=== PATIENT | female | born 1990 | race Caucasian/White ===

== ENCOUNTER → 2024-03-22 | Outpatient (CLI) | payer OTHER ==
[2024-03-23 00:23] LABS: Bacterial Vaginosis PCR Negative (NEGATIVE); Candida Group, PCR NOT DETECTED (NOT DETECT); Candida glabrata-krusei, PCR NOT DETECTED (NOT DETECT)
[2024-03-25 15:03] LABS: APTIMA MEDIA TYPE Urine; C. TRACHOMATIS BY TMA Negative (Negative); N. GONORRHOEAE BY TMA Negative (Negative); SPECIMEN SOURCE Urine
== END | disposition home or self-care (01) ==
LOC: LAB SHORT 16:22 → LAB 16:22
PROVIDERS: Advanced Practice Midwife
DX: Z11.3 Encounter for screening for infections with a predominantly sexual mode of transmission (principal); N76.0 Acute vaginitis
CPT/HCPCS: 87481; 87491; 87591; 87661; 87801

== ENCOUNTER 2024-07-31 10:15 | Day surgery (SDC) | payer OTHER ==
[~2024-07-31] VITALS: Ht 170.2 cm; Wt 96.0 kg
[~2024-07-31 10:15] MED LIST: NS 500 ML IV ONE
[2024-07-31] MEDS ORDERED: CeFAZolin Sodium 2,000 MG VIAL ONE (10:21)
[2024-07-31] MEDS ORDERED: IMITREX100 MG (10:45)
[2024-07-31] MEDS ORDERED: ONDA4ODT (10:45)
[2024-07-31] MEDS ORDERED: NS 500 ML IV ONE (10:52)
--- NOTE | 2024-07-31 11:02 | NUR ---
07/31/24 1102 Rosa Rosas 1101: TIMEOUT AND PRE-OP INJECTION OF 5 CC OF MIX OF 9 CC LIDOCAINE 1% WITH EPI 1:100,000 WITH 1 CC SODIUM BICARB
[2024-07-31] MEDS ORDERED: Scopolamine Hydrobromide Patch ONE (11:13)
[2024-07-31] MEDS ORDERED: propofoL 20 ML IV ONE (11:40)
[2024-07-31] MEDS ORDERED: Midazolam HCl 1MG / ML 2ML Vial ONE (11:40)
[2024-07-31] MEDS ORDERED: Dexamethasone Sod Phos 10 MG/ML 1ML VIAL ONE (11:44)
[2024-07-31] MEDS ORDERED: Ondansetron HCl 2 MG / ML 2ML Vial ONE (11:44)
== END 2024-07-31 13:00 | disposition home or self-care (01) ==
LOC: ORSCSDS 10:15
PROVIDERS: Orthopaedic Surgery
PROC: 0JNK0ZZ Release Left Hand Subcutaneous Tissue and Fascia, Open Approach (ICD-10-PCS; principal; 2024-07-31 11:45)
DX: M65.4 Radial styloid tenosynovitis [de Quervain] (principal); M77.8 Other enthesopathies, not elsewhere classified; E66.9 Obesity, unspecified; Z68.33 Body mass index [BMI] 33.0-33.9, adult; Z79.899 Other long term (current) drug therapy
CPT/HCPCS: A9270; J0690; J1100; J2250; J2405; J2704; J7040

== ENCOUNTER 2024-10-26 11:06 | Day surgery (SDC) | payer OTHER ==
[~2024-10-26] VITALS: Ht 170.2 cm; Wt 93.2 kg
[~2024-10-26 11:06] MED LIST changes: +IMITREX100 MG; +Lidocaine 1%-Epineph 1:100000 20 ML MDV ONE; +ONDA4ODT; +Sodium Bicarb 8.4% 1 MEQ/ML 50 ML Vial ONE
[2024-10-26] MEDS ORDERED: NS 100 ML IV ONE (11:07)
[2024-10-26] MEDS ORDERED: CeFAZolin Sodium 2,000 MG VIAL ONE (11:07)
[2024-10-26] MEDS ORDERED: LOMAIRA8 MG PO (11:23)
[2024-10-26] MEDS ORDERED: NS 500 ML IV ONE ×2 (11:45→13:15)
[2024-10-26] MEDS ORDERED: Lidocaine HCl 2% 10 ML SDA ONE (12:04)
[2024-10-26] MEDS ORDERED: Midazolam HCl 1MG / ML 2ML Vial ONE (12:20)
--- NOTE | 2024-10-26 13:11 | NUR ---
10/26/24 1311 Marion Blancas PT ARRIVED TO PACU C/O DIZZINESS. OBTAINED VERBAL ORDER FROM ANESTHESIA TO REMOVE SCOPE PATCH IF PT AGREEABLE. EXPLAINED TO PT SCOPE PATCH CAN CAUSE DIZZINESS, PT REFUSED TO HAVE IT REMOVED. VSS, TRSFR TO CHAIR, PAIN 5/10, BP UP. PT DECLINED OFFER OF NORCO WITH [facility], REQUESTING MEDS FOR DIZZINESS. BP NORMALIZED. AGAIN EXPLAINED DIZZYNESS COULD BE DT SCOPE PATCH. PT AGREED TO HAVE IT REMOVED. REMOVED AT 1309. ICE WATER PROVIDED. PT RECEIVED REMAINDER OF 500 ML BAG VIA PIV.
[2024-10-26] MEDS ORDERED: Ondansetron HCl 2 MG / ML 2ML Vial ONE (13:27)
== END 2024-10-26 14:06 | disposition home or self-care (01) ==
LOC: ORSCSDS 11:06
PROVIDERS: Orthopaedic Surgery
PROC: 0LN50ZZ Release Right Lower Arm and Wrist Tendon, Open Approach (ICD-10-PCS; principal; 2024-10-26 12:30)
DX: M65.4 Radial styloid tenosynovitis [de Quervain] (principal); E66.9 Obesity, unspecified; Z68.32 Body mass index [BMI] 32.0-32.9, adult; Z79.899 Other long term (current) drug therapy
CPT/HCPCS: A9270; J0690; J2003; J2250; J2405; J2704; J7040